=== PATIENT | male | born 1985 | race Caucasian/White ===

== ENCOUNTER 2017-06-14 17:20 | Emergency (ER) | payer OTHER ==
[~2017-06-14] VITALS: Ht 177.8 cm; Wt 94.3 kg
[2017-06-14 17:28] VITALS: BP_SYST 119
[2017-06-14] MEDS ORDERED: MAG HYDROX/AL HYDROX/SIMETH 30 ML, BELLADONNA ALKALOIDS/PHENOBARB 10 ML, LIDOCAINE VISC... PO ONE ×3 (17:45)
[2017-06-14] MEDS ORDERED: ALPRAZolam 0.25 MG TABLET PO ONE (17:45)
[2017-06-14 19:37] VITALS: BP_SYST 119
== END 2017-06-14 19:37 | disposition home or self-care (01) ==
LOC: SED 17:20
DX: R07.89 Other chest pain (principal)
CPT/HCPCS: 93005; 99283; J2001

== ENCOUNTER 2017-11-22 21:35 | Emergency (ER) | payer OTHER ==
[~2017-11-22] VITALS: Ht 177.8 cm; Wt 113.9 kg
[2017-11-22 21:42] VITALS: BP_SYST 108
--- NOTE | 2017-11-22 23:07 | NUR ---
Patient to ER bed 05 to gown for evaluation. Side rails up. Report given to SALBADOR Avery
--- NOTE | 2017-11-22 23:10 | NUR ---
Patient brought to the ED by self seen ambulating to bedside. Patient complains of bump to his right inner upper thigh for 3 years. Patient states there is swelling. Denies any pain. No other complaints/injuries per patient or as noted. Will continue to monitor.
--- NOTE | 2017-11-22 23:18 | NUR ---
ER Dr. Jose at bedside examining patient.
[2017-11-22 23:31] VITALS: BP_SYST 108
--- NOTE | 2017-11-22 23:31 | NUR ---
Patient given written and verbal discharge instructions and verbalizes understanding. ER MD discussed with patient the results and treatment provided. Patient in stable condition. ID arm band removed. Rx of Clotrimazole and Tylenol given. Patient educated on pain management and to follow up with PMD in 2-3 days. Pain Scale 0/10 Opportunity for questions provided and answered. Medication side effect fact sheet provided.
== END 2017-11-22 23:31 | disposition home or self-care (01) ==
LOC: SED 21:35
DX: R10.30 Lower abdominal pain, unspecified (principal); B35.6 Tinea cruris
CPT/HCPCS: 99282; 99283